=== PATIENT | male | born 1985 | race Caucasian/White ===

== ENCOUNTER 2024-02-23 16:51 | Emergency (ER) | payer BC ==
[~2024-02-23] VITALS: Ht 182.9 cm; Wt 107.5 kg
[2024-02-23 20:42] VITALS: BP 149/99
== END 2024-02-23 20:51 | disposition home or self-care (01) ==
LOC: ED 16:51
DX: S01.01XA Laceration without foreign body of scalp, initial encounter (principal); W25.XXXA Contact with sharp glass, initial encounter; W20.8XXA Other cause of strike by thrown, projected or falling object, initial encounter
CPT/HCPCS: 12002; 99282